=== PATIENT | male | born 1960 | race Caucasian/White ===

== ENCOUNTER 2024-07-29 23:42 | Emergency (ER) | payer OTHER, MEDICAID, SELFPAY ==
--- OUTSIDE RECORDS SUMMARY | 2024-07-29 23:44 | XMS_ITS | Clinical Summary ---
Author Organization [employer] [facility] [employer] Address [facility] [place] [address] Care Team Providers Care Corn Cutter Name Role Phone Dana Saldaña Maira Unavailable [phone] Tierra Shaw Primary Care Provider [phone] Allergies No known active allergies Medications multivitamin (MULTI-DAY) tablet Take 1 tablet by mouth once daily. 0 05/09/19 10 Active sertraline (ZOLOFT) 100 mg tabletIndications :Anxiety,Major depressive disorder, recurrent, moderate (HC) Take 1.5 Tablets (150 mg) by mouth once daily. 135 Tablet 3 10/02/19 24 Active gabapentin 300 mg capsuleIndication s:Chronic radicular lumbar pain Take 2 Capsules (600 mg) by mouth two times daily. 360 Capsule 3 07/23/19 25 Active dextroamphetamine -amphetamine (AdderalL) 20 mg tabletIndications :ADHD (attention deficit hyperactivity disorder), combined type Take 1 Tablet (20 mg) by mouth two times daily. 60 Tablet 07/23/19 25 025 Active dextroamphetamine -amphetamine (AdderalL) 20 mg tabletIndications :ADHD (attention deficit hyperactivity disorder), combined type Take 1 Tablet (20 mg) by mouth two times daily. 60 Tablet 08/22/19 25 025 Active dextroamphetamine -amphetamine (AdderalL) 20 mg tabletIndications :ADHD (attention deficit hyperactivity disorder), combined type Take 1 Tablet (20 mg) by mouth two times daily. 60 Tablet 09/21/19 25 Active gabapentin (NEURONTIN) 300 mg capsuleIndication s:Anxiety Take 1 Capsule (300 mg) by mouth two times daily. 180 Capsule 3 10/02/19 24 025 Discontin ued(*Medi cation adjustmen t) dextroamphetamine -amphetamine (AdderalL) 10 mg tabletIndications :ADHD (attention deficit hyperactivity disorder), combined type Take 1 Tablet (10 mg) by mouth two times daily. 60 Tablet 06/24/19 25 025 Discontin ued(*Med complete/ Regimen complete/ Level of care change) methylPREDNISolon e (MEDROL DOSEPAK) 4 mg tabletIndications :Chronic bilateral low back pain without sciatica Take by mouth as instructed per packaging. 21 Tablet 04/16/19 25 025 Discontin ued(*Med complete/ Regimen complete/ Level of care change) Active Problems Problem Noted Date Diagnosed Date Major depressive disorder, recurrent, moderate 0 04/16/2024 Controlled substance agreement signed 07/03/2023 ADHD (attention deficit hype ractivity disorder), combined type 01/06/2017 Routine adult health maintenance 12/24/2013 Overview (12/24/2013): Colonoscopy 12/2013 normal repeat in 10 years Sensorineural hearing loss, bilateral 01/01/2013 Hallux rigidus 06/07/2011 Sesamoiditis 06/07/2011 Patellar Tendinosis 06/23/2009 MORGAN (generalized anxiety disorder) 03/02/2007 Adjustment disorder with depressed mood 03/02/20 07 Encounters Date Type Department Care Team Description 07/22/2024 1:10 PM CDT Office Visit [facility] [address] [place] [address] Tierra Shaw PA Follow Up ( Low Back pain, 6 months) 07/22/2024 Travel from Last 3 Months Immunizations Immunization Administration Dates Next Due AMB Influenza, IIV3 (Age >=3 years)(Flu Clinic [facility]) 01/24/2009 Influenza, IIV3 (Age >=3 years) 02/12/2016,03/02 Td (Age >=7 Years) 02/24/2018 Tdap 03/02/2007 Family History Medical History Relation Name Comments Parkinsonism Brother 1 Psychiatric illness Brother 3 Asperger 's syndrome (possibly) Good Health Brother 4 Good Health Daughter 3 Good Health Daughter 4 Heart Disease Father lots of heart problems, had rheumatic fever as a child; CAD in his 80s Parkinsonism Mother Asthma Sister 2 Other Sister 3 psoriasis Cancer No Family History Relation Name Status Comments Brother 1 Alive Brother 2 Alive Brother 3 Brother 4 Daughter 1 Alive Daughter 2 Alive Daughter 3 Daughter 4 Father (Age 89) Mother (Age 74) Parkinson' s Sister 1 Alive Sister 2 Sister 3 Social History Tobacco Use Types Packs/Day Years Used Date Smoking Tobacco: Never Smokeless Tobacco: Never Tobacco Cessation:Counseling Given: Yes Alcohol Use Standard Drinks/Week Comments Yes 0 (1 standard drink = 0.6 oz pure alcohol) 1-2 glasses red wine 7 times per week PHQ-2 Answer Date Recorded PHQ-2 TOTAL SCORE 1 10/02/2023 Social Connections Answer Date Recorded Do you often feel lonely or isolated from those around you? 0 07/22/2024 Financial Resource Strain Answer Date R ecorded Difficulty of Paying Living Expenses 3 07/22/2024 Difficulty of Paying Living Expenses Not on file 07/22/2024 Food Insecurity Answer Date Recorded Do you worry your food will run out before you are able to buy more? 1 07/22/2024 Transportation Needs Answer Date Record ed Does lack of transportation keep you from medica l appointments? 1 07/22/2024 Does lack of transportation keep you from work, meetings or getting things that you need? 1 07/22/2024 Housing Stability Answer Date Recorded What is your housing situation today? 1 07/22/2024 Utilities Answer Date Recorded Do you have trouble paying f or utilities (for example, heat, electricity, water, phone)? 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 Gender Identity Not on file Sexual Orientation Not on file Occupation Industry Job Start Date Job End Date Professor Not on file Not on file Not on file Travel History Travel Start Travel End [place] 07/17/2024 07/19/2024 Obstetrics History Last Filed Vital Signs Vital Sign Reading Time Taken Comments Blood Pressure 115/74 07/22/2024 1:20 PM CDT Pulse 64 07/22/2024 1:20 PM CDT Temperature 37.2 C (99 F) 05/24/2021 9:48 AM OUTCOMES SPECIALIST Respiratory Rate 16 10/02/2019 12:4 8 PM CDT Oxygen Saturation 97% 07/22/2024 1:20 PM CDT Inhaled Oxygen Concentration - - Weight 71.6 kg (157 lb 12.8 oz) 07/22/2024 1:20 PM CDT Height 172.7 cm (5' 8) 07/22/2024 1:20 PM CDT Body Mass Index 23.99 07/22/2024 1:20 PM CDT Plan of Treatment Upcoming Encounters Date Type Department Care Team (Late st Contact Info) Description 08/10/2024 9:30 AM CDT Ancillary Procedure [facility] [address] [place] [address] 08/25/2024 10:40 AM CDT Office Visit [facility] [address] [place] [address] Yung Bird MD [address] [place] [address] 11/15/2024 10:00 AM CDT Office Visit [facility] [address] [id number] [place] [address] [place], [place] [id number] Health Maintenance Due Date Last Done Comments Pneumococcal series for age 50+ (1 of 1 - PCV) 07/19/2009 Zoster (shingles) series for age 50+ (1 of 2) 07/19/2009 COVID-19 vaccine series ( - season) 2023 01/19/2021, 05/31/2020, 05/03/2020 Colonoscopy through age 75 12/25/202312/24, 12/24/2013, [facility]/26/2002 [facility] Depression screening for age 12+ 10/01/2024 10/02/2023, 09/30/2022, 07/30/2021, Additional history exists Influenza Vaccine (Season Ended) 2024 02/12/2016, 01/24/2009, 03/02/2007 BMI (ht and wt on same day) for age 18+ 07/22/2025 07/22/2024, 04/16/2024, 10/02/2023, Additional history exists Tetanus booster 02/25/2028 02/24/2018, 03/02/2007 Lipids for age 45-75 10/01/2028 10/02/2023, 09/30/2022, 07/30/2021, Additional history exists RSV vaccine for adults or (1 - 1-dose 75+ series) 07/19/2034 Tdap Completed 03/02/2007 Hepatitis C screening for ag e 18-79 Completed 11/24/2015 HIV for age 15-65 Completed 09/30/2022 Procedures Procedure Name Priority Date/Time Associated Diagnosis Comments LIPID PANEL W REFLEX MEASURED LDL Routine 10/02/2023 8:53 AM CDT Hyperlipidemia, unspecified hyperlipidemia type LC HIV-1/O/2, 4TH GENERATION Routine 09/30/2022 8:34 AM CDT Screening for HIV (human immunodeficiency virus) ANTI HCV Routine 11/24/2015 8:47 AM CDT Need for hepatitis C screening test from Last 3 Months or Most Recently Relevant to Health Maintenance Results * (ABNORMAL) LIPID PANEL W REFLEX MEASURED LDL (10/02/2023 8:53 AM CDT) CHOLESTEROL,TOTAL 244(H) 100 - 199 mg/dL 10/02/2023 2:[address] [facility] Comment: Cholesterol, Total Reference Ranges Desirable <200 mg/dL Borderline 200-239 mg/dL High >=240 mg/dL TRIGLYCERIDES 86 <150 mg/dL 10/02/2023 2:34 PM CDT [facility] HDL CHOLESTEROL 71 >40 mg/dL 2:[address] [facility] NON-HDL CHOLESTEROL 173(H) <145 mg/dl 10/02/2023 2:[address] [facility] CHOL/HDL RATIO 3.44 <4.50 10/02/2023 2:34 PM CDT [facility] LDL CHOLESTEROL 156(H) <=130 mg/dL 10/02/2023 2:34 PM CDT [facility] VLDL CHOLESTEROL 17 <=30 mg/dL 10/02/2023 2:[address] [facility] PROVIDER ORDERED STATUS RANDOM 10/02/2023 2:[address] [facility] Blood BLOOD SPECIMEN / Unknown Venipuncture / Unknown 10/02/2023 8:53 AM CDT 10/02/2023 8:54 AM CDT Tierra WATERS CHEMISTRY Final [facility] lt [facility] [address] [place] [address], [place] * LC HIV-1/O/2, 4TH GENERATION (09/30/2022 8:34 AM CDT) HIV Scr 4th Gen Non Reactive Non Reactive 10/03/2022 4:08 AM CDT [facility] Comment: HIV Negative HIV-1/HIV-2 antibodies and HIV-1 p24 antigen were NOT detected. There is no laboratory evidence of HIV infection. Blood BLOOD SPECIMEN / Unknown Venipuncture / Unknown 09/30/2022 8:34 AM CDT 09/30/2022 8:36 AM CDT Narrative [facility] - 10/03/2022 4:08 AM CDT Performed at: [address] [place] [id number] Lab Pack Chemist: Nathan Gordon MD, Phone: [phone] us Tierra WATERS LABORATORY Final Resu lt [facility]) [facility] [place] [address], [place] * ANTI HCV [43621.2] (11/24/2015 8:47 AM CDT) HEPATITIS C ANTIBODY Non-Reacti ve Non-Reacti ve 11/24/2015 5:[address] [facility] Blood BLOOD SPECIMEN / Unknown Venipuncture / Unknown 11/24/2015 8:47 AM CDT 11/24/2015 8:47 AM CDT Narrative [facility] - 11/24/2015 5:49 PM CDT Antibodies to HCV not detected; does not exclude the possibility of exposure to HCV. us Martinez Perez MD SEND OUTS Final Resu lt [facility] [address] [place] [address], from Last 3 Months or Most Recently Relevant to Health Maintenance Insurance [employer] E[employer] MEDICARE ADVANTAGE Care Teams Corn Cutter Relationship Specialty Start Date End Date Tierra Shaw PA [address] [place] [address] PCP - General Physician Hat Finishing Materials Preparer 07/03/23 Dana Saldaña AuD Audiology 01/01/13
[2024-07-29 23:47] VITALS: BP 97/54; PULSE 76; RESP 16; TEMP 36.6; O2SAT 95; BMI 23.3
--- NOTE | 2024-07-30 00:22 | ED.ANXIETY ---
HPI - Anxiety General Chief Complaint: Anxiety Stated Complaint: CBD gummy reaction, nausea, SOB Time Seen by Provider: 07/30/24 00:11 History of Present Illness HPI narrative: patient is a 64 year old gentleman who took a 350 mg THC gummy tonight. This is a much higher dose than he is used to. As result he developed extreme anxiety paranoia nausea and vomiting. He took the dose of THC approximately 6 hours ago in actually is starting to feel better. He has had no chest pain no shortness a breath orthopnea no PND. Takes the THC on occasion for recreational purposes. He has not been using any other drugs or alcohol and otherwise is feeling fine. Related Data Home Medications ?Medication ?Instructions ?Recorded ?Confirmed dextroamphetamine-amphetamine 20 1 tab PO BID 07/29/24 07/29/24 mg tablet gabapentin 300 mg capsule PO 07/29/24 sertraline 100 mg tablet PO 07/29/24 Allergies Allergy/AdvReac Type Severity Reaction Status Date / Time No Known Drug Allergies Allergy Verified 07/29/24 23:51 Review of Systems Status of ROS: Reports: 10 or more systems reviewed and unremarkable except as noted in History and below Exam Narrative: Exam Narrative: EXAM GENERAL: Patient appears comfortable and well. EYES: No scleral icterus. LYMPH: No supraclavicular or cervical lymphadenopathy. SKIN: Visible skin seen during exam normal or with benign process only. EXT: No dependent lower extremity pedal edema. HEART: Regular rate and rhythm with no murmurs, rubs, or gallops. LUNGS: Clear to auscultation bilaterally with no crackles or wheezes. ABD: Soft, non tender, non distended. PSYCH: Good eye contact, speech is not pressured. Const: Vital Signs, click to edit/add: Vital Signs - 24 hr 07/29/24 23:47 Temperature 98 F Pulse Rate [Pulse Oximeter] 76 Respiratory Rate 16 Blood Pressure [Ri ght Upper Arm] 97/54 L Pulse Oximetry 95 Oxygen Delivery Me thod Room Air Course Course ED Course: Patient seen and examined. CBC basic metabolic panel pending. Normal saline oral Ativan IV Zofran given. Vital Signs Vital signs: Initial Vital Signs Temperature 98 F 07/29/24 23:47 Temperature Source Temporal Artery Scan 07/29/24 23:47 Pulse Rate 76 07/29/24 23:47 Respiratory Rate 16 07/29/24 23:47 Blood Pressure 97/54 L 07/29/24 23:47 Blood Pressure Mean 68 L 07/29/24 23:47 Blood Pressure Position Sitting 07/29/24 23:47 Pulse Oximetry 95 07/29/24 23:47 Oxygen Delivery Method Room Air 07/29/24 23:47 Vital Signs Temperature 98 F 07/29/24 23:47 Pulse Rate 76 07/29/24 23:47 Respiratory Rate 16 07/29/24 23:47 Blood Pressure 97/54 L 07/29/24 23:47 Pulse Oximetry 95 07/29/24 23:47 Oxygen Delivery Method Room Air 07/29/24 23:47 Temperature 98 F 07/29/24 23:47 Pulse Rate 76 07/29/24 23:47 Respiratory Rate 16 07/29/24 23:47 Blood Pressure 97/54 L 07/29/24 23:47 Pulse Oximetry 95 07/29/24 23:47 Oxygen Delivery Method Room Air 07/29/24 23:47 Medications Administered Medications: Generic Name Dose Route Start Last Admin Trade Name Julio C PRN Reason Stop Dose Admin Sodium Chloride 1,000 mls @ 1,000 mls/hr 07/30/24 00:21 07/30/24 00:28 0.9 % Sodium Chloride 1000 Ml IV 07/30/24 01:20 1,000 mls/hr .Q1H TERRANCE Administration Lorazepam 1 mg 07/30/24 00:20 07/30/24 00:28 Lorazepam 1 Mg Tablet PO 07/30/24 00:21 1 mg ONCE ONE Administration Ondansetron HCl 4 mg 07/30/24 00:20 07/30/24 00:28 Ondansetron 2 Mg/Ml Inj IVP 07/30/24 00:21 4 mg ONCE ONE Administration MDM - Anxiety MDM Narrative Medical decision making narrative: Patient is a 64-year-old gentleman took an extremely large dose of THC tonight. He developed paranoia and anxiety. This was treated with normal saline Zofran and Ativan. His labs are reassuring. Patient is feeling much better at this time I believe came safely be discharged with Zofran 0 DT p.r.n.. He is to avoid large doses of THC in the future and will follow-up with his primary physician as needed. Discharge Plan Discharge Clinical Impression: Acute anxiety Patient Disposition: Home, Self-Care Condition: Stable Instructions: Anxiety (ED) Additional Instructions: Avoid large doses of THC in the future Zofran as needed for nausea and vomiting follow-up with your doctor as needed. Activity Level: No Restrictions Discharge Diet: Regular Prescriptions: No Action sertraline 100 mg tablet PO dextroamphetamine-amphetamine 20 mg tablet 1 tab PO BID gabapentin 300 mg capsule PO Follow Up/Referrals: Martinez Perez MD [Staff Physician] - Stand Alone Forms: [employer] Info Instructions
[2024-07-30] MEDS: LORazepam 1 MG TABLET PO (00:28)
[2024-07-30] MEDS: 0.9 % SODIUM CHLORIDE 1000 ml 1,000 ML IV (00:28)
[2024-07-30] MEDS: ONDANSETRON 2 MG/ML inj 4 MG IVP (00:28)
--- OUTSIDE RECORDS SUMMARY | 2024-07-30 00:30 | XMS_ITS | Clinical Summary ---
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 on file Not on file Travel History Travel Start Travel End [place] 07/17/2024 07/19/2024 Obstetrics History Last Filed Vital Signs Vital Sign Reading Time Taken Comments Blood Pressure 115/74 07/22/2024 1:20 PM CDT Pulse 64 07/22/2024 1:20 PM CDT Temperature 37.2 C (99 F) 05/24/2021 9:48 AM TILE MACHINE OPERATOR Respiratory Rate 16 10/02/2019 12:4 8 PM [...] Description 08/10/2024 9:30 AM CDT Ancillary Procedure [facility] [address] [place] [address] 08/25/2024 10:40 AM CDT Office Visit [facility] [address] [place] [address] Yung Bird MD [address] [place] [address] 11/15/2024 10:00 AM CDT Office Visit [facility] [address] [id number] [place] [address] [place], [place] [phone] Health Maintenance Due Date Last Done Comments Pneumococcal series for age 50+ (1 of 1 - PCV) 07/19/2009 Zoster (shingles) series for age 50+ (1 of 2) 07/19/2009 COVID-19 vaccine series ( - season) 2023 01/19/2021, 05/31/2020, 05/03/2020 Colonoscopy through age 75 12/25/202312/24, 12/24/2013, 03/26/2002 ([facility] Depression screening for age 12+ 10/01/2024 10/02/2023, [...] - 199 mg/dL 10/02/2023 2:34 PM CDT [facility] Comment: Cholesterol, Total Reference Ranges Desirable <200 mg/dL Borderline 200-239 mg/dL High >=240 mg/dL TRIGLYCERIDES 86 <150 mg/dL 10/02/2023 2:34 PM CDT [facility] HDL CHOLESTEROL 71 >40 mg/dL 2:34 PM CDT [facility] NON-HDL CHOLESTEROL 173(H) <145 mg/dl 10/02/2023 2:34 PM CDT [facility] CHOL/HDL RATIO 3.44 <4.50 10/02/2023 2:34 PM CDT [facility] LDL CHOLESTEROL 156(H) <=130 mg/dL 10/02/2023 2:34 PM CDT [facility] VLDL CHOLESTEROL 17 <=30 mg/dL 10/02/2023 2:34 PM CDT [facility] PROVIDER ORDERED STATUS RANDOM 10/02/2023 2:34 PM CDT [facility] Blood BLOOD SPECIMEN / Unknown Venipuncture / Unknown 10/02/2023 8:53 AM CDT 10/02/2023 8:54 AM CDT Tierra WATERS CHEMISTRY Final [facility] [address] [place] [address], [place] * LC HIV-1/O/2, 4TH GENERATION (09/30/2022 8:34 AM CDT) HIV Scr 4th Gen Non Reactive Non Reactive 10/03/2022 4:08 AM CDT [facility] Comment: HIV Negative HIV-1/HIV-2 antibodies and HIV-1 p24 antigen were NOT detected. There is no laboratory evidence of HIV infection. Blood BLOOD SPECIMEN / Unknown Venipuncture / Unknown 09/30/2022 8:34 AM CDT 09/30/2022 8:36 AM CDT Narrative [facility] - 10/03/2022 4:08 AM CDT Performed at: [address] [place] [id number] Feed Manager: Nathan Gordon MD, Phone: [phone] us Tierra W[facility]ERS LABORAT[facility] Final Resu lt [facility] [place] [address], [place] * ANTI HCV [12810.2] (11/24/2015 8:47 AM CDT) HEPATITIS C ANTIBODY Non-Reacti ve Non-Reacti ve 11/24/2015 5:49 PM CDT [facility] Blood BLOOD SPECIMEN / Unknown Venipuncture / Unknown 11/24/2015 8:47 AM CDT 11/24/2015 8:47 AM CDT Narrative [facility] - 11/24/2015 5:49 PM CDT Antibodies to HCV not detected; does not exclude the possibility of exposure to HCV. us Martinez Perez MD SEND OUTS Final Resu lt [facility] [address] [place] [address], from Last 3 Months or Most Recently Relevant to Health Maintenance Insurance MED[employer] E[employer] MEDICARE ADVANTAGE Care Teams Art Critic Relationship Specialty Start Date End Date Tierra Shaw PA [address] [place] [address] PCP - General Physician Planer Feeder 07/03/23 Dana Saldaña AuD Audiology 01/01/13
[2024-07-30 00:45] LABS: Basophils Absolute Auto 0.02 K/uL (0.00-0.30); Basophils Percent Auto 0.3 % (0.0-3.0); Eosinophils Absolute Auto 0.08 K/uL (0.00-0.50); Eosinophils Percent Auto 1.4 % (0.0-7.0); Hematocrit 33.1 % (37.0-53.0); Hemoglobin* 11.2 gm/dL (13.5-17.5); Immature Granulocytes Abs Auto 0.02 K/uL (0.00-0.30); Immature Granulocytes Pct Auto 0.3 %; Lymphocytes Percent Auto 14.5 % (20-44); Mean Corpuscular HGB Conc 34 gm/dL (32-36); Mean Corpuscular Hemoglobin 29 pg (26-34); Mean Corpuscular Volume 86 fL (80-100); Monocytes Percent Auto 7.8 % (0.0-11.0); Neutrophils Percent Auto 75.7 % (42.0-72.0); Platelet Count* 173 K/uL (140-440); RDW Coefficient of Variation % 13.1 % (11.5-15.5); Red Blood Count 3.85 m/uL (4.30-5.90); White Blood Count* 5.92 K/uL (4.50-11.00)
[2024-07-30 00:56] LABS: Slide Review Reflex No
[2024-07-30 01:18] LABS: Blood Urea Nitrogen* 17 mg/dL (7-30)
[2024-07-30 01:19] LABS: Alanine Aminotransferase* 24 U/L (4-50); Alkaline Phosphatase* 48 U/L (40-150); Aspartate Amino Transferase* 43 U/L (12-35); Bilirubin Total* 0.7 mg/dL (0.1-1.5); Carbon Dioxide* 23 mmol/L (20-32); Est. Creatinine Clearance* 71.25; Estimated Glomerular Filt Rate 84 ml/min; Glucose* 129 mg/dL (60-115); Total Protein* 6.8 g/dL (6.0-8.3)
[2024-07-30 01:25] LABS: Chloride* 104 mmol/L (96-114)
[2024-07-30 01:26] LABS: Albumin* 4.3 g/dL (3.3-5.0); Anion Gap 10 mEq/L (7-15); Sodium* 137 mmol/L (135-149)
== END 2024-07-30 01:33 | disposition home or self-care (01) ==
PROVIDERS: Emergency Provider Internal Medicine; PCP Physician Assistant
DX: F41.9 Anxiety disorder, unspecified (principal); T40.715A Adverse effect of cannabis, initial encounter
CPT/HCPCS: 36415; 80053; 85025; 96374; 99283; A9270; J2405; J7030